=== PATIENT | male | born 1955 | race Two or more races ===

== ENCOUNTER → 2024-03-24 | Outpatient (CLI) | payer OTHER, MEDICAID, SELFPAY ==
[2024-03-24 09:04] LABS: Basophils # (Auto) 0.1 Thou/mm3 (0.0-0.2); Basophils % (Auto) 1 % (0-2.5); Eosinophils # (Auto) 0.2 Thou/mm3 (0.0-0.5); Eosinophils % (Auto) 2 % (0-10); Hematocrit 35.9 % (41.0-53.0); Immature Granulocytes % (Auto) 0 % (0-0); Immature Granulocytes Auto 0.02 Thou/mm3 (0.00-0.00); Lymphocytes # (Auto) 2.7 Thou/mm3 (1.0-4.8); Lymphocytes % (Auto) 28 % (10-50); Mean Corpuscular HGB Conc 33.4 g/dl (31.0-37.0); Mean Corpuscular Volume 84 fL (80-100); Monocytes # (Auto) 0.8 Thou/mm3 (0.0-0.8); Monocytes % (Auto) 8 % (0-12); Neutrophils % (Auto) 62 % (37-80); Nucleated Red Blood Cell % 0 /100 WBC (0); Platelet Count 295 Thou/mm3 (140-440); RDW Standard Deviation 43.4 fL (35.1-43.9); Red Blood Count 4.28 Miln/mm3 (4.50-5.90); White Blood Count 9.7 Thou/mm3 (3.8-10.6)
[2024-03-24 09:10] LABS: Glucose Estimated Average 171 mg/dL (80-131); Hemoglobin A1C 7.6 % Hgb (4.8-6.0)
[2024-03-24 09:23] LABS: PSA Medicare Annual Scrn 0.49 ng/mL (0-4.00)
[2024-03-24 09:31] LABS: Alanine Aminotransferase 25 U/L (10-49); Albumin, Serum 4.5 gm/dL (3.4-4.8); Alkaline Phosphatase 70 U/L (46-116); Anion Gap 8 (7-16); Aspartate Amino Transferase 16 U/L (0-34); BUN/Creatinine Ratio 9 Ratio (12-20); Bilirubin,Total 0.6 mg/dL (0.3-1.2); Blood Urea Nitrogen 9 mg/dL (9-23); Calcium 9.4 mg/dL (8.3-10.6); Calcium (Corrected) 9.4 mg/dL (8.5-10.1); Cardiac Risk Estimate 3.8 RATIO (4.0-6.7); Chloride 102 mMol/L (98-107); Cholesterol 145 mg/dL (132-200); Globulin 2.2 gm/dL (2.3-3.5); Glucose 185 mg/dL (74-106); HDL Cholesterol 38 mg/dL (40-60); LDL Cholesterol,Calculated 84 mg/dL (0-130); Osmolality,Calculated 270 (275-295); Potassium 4.9 mMol/L (3.4-5.1); Sodium 133 mMol/L (136-145); Total Protein 6.7 gm/dL (5.7-8.2); Triglycerides 116 mg/dL (30-150); eGFR > 60 See Note
[2024-03-24 10:41] LABS: Folate > 24.00 ng/mL (>5.38); Vitamin B12 243 pg/mL (211-911)
[2024-03-24 11:54] LABS: Creatinine MALB Rnd Ur 26 mg/dL (30-125); Microalbumin, Random Urine < 3 mg/L (0-300)
== END | disposition home or self-care (01) ==
PROVIDERS: PCP Family Medicine; Referring Provider Internal Medicine; Visit Provider Internal Medicine
DX: E11.40 Type 2 diabetes mellitus with diabetic neuropathy, unspecified (principal); I10 Essential (primary) hypertension; G25.0 Essential tremor; G62.9 Polyneuropathy, unspecified; R35.1 Nocturia
CPT/HCPCS: 36415; 80053; 80061; 82043; 82570; 82607; 82746; 83036; 84153; 85025; G0103

== ENCOUNTER → 2024-07-16 | Outpatient (CLI) | payer MEDICARE, MEDICAID, SELFPAY ==
--- NOTE | 2024-07-16 09:00 | XR_ITS ---
Examination: Ultrasound abdominal aorta Exam date and time: July 16, 2024 1027 hours INDICATIONS: Screening encounter for cardiovascular disorder's, smoking history TECHNIQUE AND FINDINGS: Sonographic images abdominal aorta Transverse dimension proximal aorta 1.9 cm mid aorta 2.0 cm distal aorta 1.9 cm right iliac 1.4 cm Left iliac 0.7 cm IMPRESSION: No abdominal aortic aneurysm Recommend 6 month follow-up to document stability of mild aneurysmal dilatation right iliac artery
--- NOTE | 2024-07-16 09:30 | XR_ITS ---
Examination: CT chest, without intravenous contrast. Sagittal and coronal 2-D reconstructions. Exam date and time: July 16, 2024 1017 hours INDICATIONS: Smoking history 50 years CTDI:vol (mGy) 11.6 DLP: (mGycm) 421 Technique: Multiple 3.0 mm axial sections of the chest to been obtained. Bone and lung density settings are obtained. Sagittal and coronal 2-D reconstructions have been obtained. Low dose protocols were performed. One or more of the following dose reduction techniques were used; automated exposure control, adjustment of the mA and/or KV according to patient size, use of iterative reconstruction technique. Findings: No thoracic aortic aneurysm dilatation Pulmonary artery segments are not enlarged. No paratracheal tracheobronchial or bronchopulmonary adenopathy No pneumonia, pulmonary edema or pulmonary mass lesion No focal liver or splenic lesions No gallstones No pancreatic mass Abdominal aorta visualized not enlarged Mild perinephric stranding IMPRESSION: No mediastinal lymphadenopathy No pneumonia, pulmonary edema, pleural disease or pulmonary nodules
== END | disposition home or self-care (01) ==
PROVIDERS: Referring Provider Internal Medicine; Visit Provider Internal Medicine
DX: Z13.6 Encounter for screening for cardiovascular disorders (principal); Z12.2 Encounter for screening for malignant neoplasm of respiratory organs
CPT/HCPCS: 71271; 76770

== ENCOUNTER → 2024-10-19 | Outpatient (CLI) | payer MEDICARE, MEDICAID, SELFPAY ==
[2024-10-19 09:46] LABS: Basophils # (Auto) 0.1 Thou/mm3 (0.0-0.2); Basophils % (Auto) 1 % (0-2.5); Eosinophils # (Auto) 0.2 Thou/mm3 (0.0-0.5); Eosinophils % (Auto) 2 % (0-10); Hematocrit 35.7 % (41.0-53.0); Hemoglobin 12.2 g/dL (13.5-16.0); Immature Granulocytes % (Auto) 0 % (0-0); Immature Granulocytes Auto 0.03 Thou/mm3 (0.00-0.00); Lymphocytes # (Auto) 2.8 Thou/mm3 (1.0-4.8); Lymphocytes % (Auto) 28 % (10-50); Mean Corpuscular HGB Conc 34.2 g/dl (31.0-37.0); Mean Corpuscular Hemoglobin 27.9 pg (25.0-35.0); Mean Corpuscular Volume 82 fL (80-100); Monocytes # (Auto) 0.8 Thou/mm3 (0.0-0.8); Monocytes % (Auto) 8 % (0-12); Neutrophils # (Auto) 6.4 Thou/mm3 (1.8-7.7); Neutrophils % (Auto) 62 % (37-80); Nucleated Red Blood Cell % 0 /100 WBC (0); Platelet Count 330 Thou/mm3 (140-440); RDW Standard Deviation 43.8 fL (35.1-43.9); Red Blood Count 4.38 Miln/mm3 (4.50-5.90); White Blood Count 10.2 Thou/mm3 (3.8-10.6)
[2024-10-19 10:04] LABS: Alanine Aminotransferase 25 U/L (10-49); Albumin, Serum 4.5 gm/dL (3.4-4.8); Albumin/Globulin Ratio 1.9 (1.2-2.2); Alkaline Phosphatase 70 U/L (46-116); Anion Gap 8 (7-16); Aspartate Amino Transferase 18 U/L (0-34); BUN/Creatinine Ratio 10 Ratio (12-20); Bilirubin,Total 0.6 mg/dL (0.3-1.2); Blood Urea Nitrogen 10 mg/dL (9-23); Calcium 9.5 mg/dL (8.3-10.6); Calcium (Corrected) 9.5 mg/dL (8.5-10.1); Carbon Dioxide 23.9 mMol/L (20.0-31.0); Cardiac Risk Estimate 3.1 RATIO (4.0-6.7); Chloride 102 mMol/L (98-107); Cholesterol 125 mg/dL (132-200); Globulin 2.4 gm/dL (2.3-3.5); Glucose 147 mg/dL (74-106); HDL Cholesterol 40 mg/dL (40-60); LDL Cholesterol,Calculated 65 mg/dL (0-130); Osmolality,Calculated 270 (275-295); Potassium 4.5 mMol/L (3.4-5.1); Sodium 134 mMol/L (136-145); Total Protein 6.9 gm/dL (5.7-8.2); Triglycerides 98 mg/dL (30-150); eGFR > 60 See Note
[2024-10-19 10:05] LABS: Creatinine MALB Rnd Ur 53 mg/dL (30-125); Microalbumin, Random Urine < 3 mg/L (0-300)
[2024-10-19 10:28] LABS: Glucose Estimated Average 151 mg/dL (80-131); Hemoglobin A1C 6.9 % Hgb (4.8-6.0)
== END | disposition home or self-care (01) ==
LOC: COPL 08:14
PROVIDERS: PCP Internal Medicine; Referring Provider Internal Medicine; Visit Provider Internal Medicine
DX: E11.65 Type 2 diabetes mellitus with hyperglycemia (principal); I72.3 Aneurysm of iliac artery; G62.9 Polyneuropathy, unspecified; I10 Essential (primary) hypertension
CPT/HCPCS: 36415; 80053; 80061; 82043; 82570; 83036; 85025

== ENCOUNTER → 2024-12-01 | Outpatient (CLI) | payer MEDICARE, MEDICAID, SELFPAY ==
--- NOTE | 2024-12-01 15:30 | XR_ITS ---
Examination: Ultrasound abdominal aorta TECHNIQUE: Grayscale sonographic images abdominal aorta Date and time: November 2024 1458 hours Comparison July 16, 2024 INDICATIONS: Diagnosis mild aneurysmal dilatation right iliac artery on prior study FINDINGS: Transverse dimension proximal aorta is 17 mm mid aorta 16mm distal aorta 12 mm right iliac 9 mm left iliac 8mm IMPRESSION: No current abdominal aortic or iliac aneurysm
== END | disposition home or self-care (01) ==
LOC: CDIM 14:43
PROVIDERS: PCP Family Medicine; Referring Provider Internal Medicine; Visit Provider Internal Medicine
DX: I72.3 Aneurysm of iliac artery (principal)
CPT/HCPCS: 76770